=== PATIENT | female | born 1965 | race African-American/Black ===

== ENCOUNTER 2020-06-11 20:59 | Emergency (ER) | payer OTHER ==
[~2020-06-11] VITALS: Ht 162.6 cm; Wt 131.1 kg
[2020-06-11 21:10] VITALS: BP 138/89
--- NOTE | 2020-06-11 22:00 | NUR ---
PT PLACED IN BED 11
[2020-06-11] MEDS ORDERED: methocarbamoL 500 MG TAB PO STA (22:06)
[2020-06-11] MEDS ORDERED: HYDROcodone/APAP 5/325 MG 1 TAB TAB PO ONE (22:10)
[2020-06-11] MEDS ORDERED: KETOROLAC 30 MG/ML VIAL IM ONE (22:10)
[2020-06-11] MEDS ORDERED: DEXAMETHASONE 10 MG/ML VIAL PO ONE (22:10)
--- NOTE | 2020-06-11 22:15 | NUR ---
PT COMING IN FOR C/O LWER BACK PAIN SCIATICA PAIN RADIATING DOWN HER LEFT LEG X 2 WEEKS. DENIES ANY INJURY TO LOWER BACK AND NO PRIOR ISSUE WITH SCIATICA. WAS SEEN LAST WEEK AT URGENT CARE HOWEVER MEDS PRESCRIBED DID NOT HELP. BED IN LOWEST POSITION AND SIDERAIL UP X 1. NKA NO HX
[2020-06-11 22:49] VITALS: BP 138/89
--- NOTE | 2020-06-11 22:50 | NUR ---
Patient discharged with v/s stable. Written and verbal after care instructions given and explained. Patient alert, oriented and verbalized understanding of instructions. Ambulatory with steady gait. All questions addressed prior to discharge. ID band removed. Patient advised to follow up with PMD. Rx of NORCO, ROBAXIN, AND MEDROL KIANNA given. Patient educated on indication of medication including possible reaction and side effects. Opportunity to ask questions provided and answered.
== END 2020-06-11 22:50 | disposition home or self-care (01) ==
LOC: MED 20:59
DX: M54.40 Lumbago with sciatica, unspecified side (principal); E66.9 Obesity, unspecified
CPT/HCPCS: 96372; 99284; J1100; J1885